=== PATIENT | male | born 1940 | race Caucasian/White ===

== ENCOUNTER 2020-11-03 17:05 | Emergency (ER) | payer OTHER ==
[~2020-11-03] VITALS: Ht 172.7 cm; Wt 108.9 kg
--- NOTE | ~2020-11-03 | EMS ---
[place] [address] EMS Patient Care Report Name: MANNIE MELCHOR Room #: REG FRANCIA Wayne#: [id number] Admission: 11/03/20 Attend Phys: Discharge: Date of : 40 Report #: [id number] THIS REPORT FOR: //name// Report Transmitted: 11/03/2020 19:30 EMS Care Summary [place], [place]/[facility] Incident [id number] @ 11/03/2020 16:16 Incident Location [address] [place] [address] Patient MANNIE MELCHOR Male, 80 Years 1940 Patient Address [address] [place] [address] Patient History Hypertension (HTN),Gastro-Esophageal Reflux Disease (GERD),Atrial Fibrillation,Type 2 Diabetes, Patient Allergies Penicillin allergy,Keflex,Lisinopril,Amoxicillin, Patient Medications Metformin, Chief Complaint Altered Mental Status Disposition Transported No Lights/[place] Reason Altered Mental Status Transported To [facility] Narrative Responded to the address for report of an unconscious patient. Arrived on scene at the single family residence and found the patient sitting on the couch alert but not oriented with a GCS of 14. The patients daughter was on scene and [address] [address] EMS Patient Care Report Name: MANNIE MELCHOR Room #: REG FRANCIA Wayne#: [id number] Admission: 11/03/20 Attend Phys: Discharge: Date of : 40 Report #: [id number] advised that the patient had a fall on Tuesday and that the patient had hit his head. The patients daughter advised that the patient went and saw his primary care physician after the fall and reported that the patient was scheduled for an MRI on this up coming Tuesday. The patient was assessed on scene and found to be hypoglycemic with a BG of 21. The patients daughter then advised that if the patients blood sugar was treated and that the patient became oriented that she would be okay with the patient not going to the hospital by EMS transport. The patient was then administered one 24g tube of instant glucose on the scene and the patient then began to drink complex carbohydrates on the scene. The patients blood sugar was then reassessed on scene and found to be only 28 on a BG reading. The patient began to become alert and oriented at this time and was able to answer questions appropriately. The patients daughter then advised that she did actually think it would be best for the patient to be transported to the hospital for further evaluation of his head. The patient then gave consent to transport and the patient was then assisted off of his couch and walked to the front door of the residence where he was then packaged onto the stretcher at the front porch. The patient was then moved to the back of the ambulance and placed and packaged for transport without incident. The patient was monitored throughout transport with no changes in mental status or condition. The patient was administered one more tube of instant glucose during transport with no further changes in condition. Patient care was then transfered to the receiving facility without incident. Med unit back in service. Initial Vitals @16:55P: 70, @16:47P: 59,CO: 0,NC Suspected: false @16:37P: 102,R: 18,BP: 118/87,Pain: 0/10,GCS: 15,Glucose: 28,SpO2: 96,Revised Trauma: 12, @16:22P: 54,R: 18,BP: 118/65,Pain: 0/10,GCS: 14,Glucose: 21,SpO2: 99,Revised Trauma: 12, @16:48P: 56,R: 18,BP: 139/64,Pain: 0/10,GCS: 15,Glucose: 71,SpO2: 99,Revised Trauma: 12, @16:51P: 58,R: 18,BP: 134/70,Pain: 0/10,GCS: 15,Revised Trauma: 12, Assessments @16:22MENTAL:Confused,Person Oriented,SKIN:HEENT:Head/Face: No Abnormalities,Neck/Airway: No Abnormalities,LUNG SOUNDS:ABDOMEN:PELVIS//GI:EXTREMITIES:PULSE:NEURO:@16:37MENTAL:Person Oriented,Time Oriented,Place Oriented,Event Oriented,SKIN:HEENT:Head/Face: No Abnormalities,Neck/Airway: No Abnormalities,LUNG SOUNDS:ABDOMEN:PELVIS//GI:EXTREMITIES:PULSE:NEURO: Impression Diabetic Hypoglycemia Procedures [address] [address] EMS Patient Care Report Name: CRISTINA MELCHORDONALD Denney Room #: REG FRANCIA Wayne#: [id number] Admission: 11/03/20 Attend Phys: Discharge: Date of : 40 Report #: [id number] @16:22ALS AssessmentResponse: UnchangedSucceeded@16:24Oral Glucose - 24 Grams (gms) - OralResponse: Improved@16:50Oral Glucose - 24 Grams (gms) - OralResponse: Unchanged@16:473-Lead ECGResponse: UnchangedSucceeded Timeline 16:15,Call Received 16:15,Dispatch Notified 16:16,Dispatched 16:17,En Route 16:20,On Scene 16:22,At Patient 16:22,ALS Assessment,Response: UnchangedSucceeded, 16:22,BP: 118/65 M,PULSE: 54,RR: 18 R,SPO2: 99 Ox,ETCO2: ,B,PAIN: 0,GCS: 14, 16:24,Oral Glucose - 24 Grams (gms) - Oral,Response: Improved 16:37,BP: 118/87 M,PULSE: 102,RR: 18 R,SPO2: 96 Ox,ETCO2: ,B,PAIN: 0,GCS: 15, 16:47,3-Lead ECG,Response: UnchangedSucceeded, 16:47,BP: / M,PULSE: 59,RR: R,SPO2: Ox,ETCO2: ,BG: ,PAIN: ,GCS: , 16:47,Depart Scene 16:48,BP: 139/64 M,PULSE: 56,RR: 18 R,SPO2: 99 Ox,ETCO2: ,B,PAIN: 0,GCS: 15, 16:50,Oral Glucose - 24 Grams (gms) - Oral,Response: Unchanged 16:51,BP: 134/70 M,PULSE: 58,RR: 18 R,SPO2: Ox,ETCO2: ,BG: ,PAIN: 0,GCS: 15, 16:55,BP: / M,PULSE: 70,RR: R,SPO2: Ox,ETCO2: ,BG: ,PAIN: ,GCS: , 17:11,At Destination 17:24,Call Closed Disclaimer v1.1 Copyright 2020 [employer] This EMS Care Summary contains data elements from the applicable legal record (which may be displayed differently). It is designed to provide pertinent information for the following purposes: continuity of care, clinical quality, and state data reporting. The complete legal record is available to ED staff and administrators of the receiving hospital in [facility]'s Patient Tracker. All data is provided "as is."
[~2020-11-03 17:05] MED LIST: ACIDOPHILUS LA1 EACH PO; ACIDOPHILUS LACT1 GM PO; ASPIRIN EC325 M1 PO; ASPIRIN325 PO; BAYER CHEWABLE81 MG PO; CHERACOL COUGH120 ML PO; CLOBETASOL PROP60 G3; GLUCOPHAGE1000 MG PO; IRON325 PO; LANTUS SUBQ; LEVAQUIN 500 M500 M2 PO; PRINIVIL5 MG PO; PROTONIX40 M1 PO; SORINE 80 MG TA80 M1 PO
[2020-11-03 20:19] VITALS: BP 121/74
== END 2020-11-03 20:45 | disposition home or self-care (01) ==
LOC: ER 17:05
DX: S00.81XA Abrasion of other part of head, initial encounter (principal); E11.649 Type 2 diabetes mellitus with hypoglycemia without coma; Z87.891 Personal history of nicotine dependence; Z88.1 Allergy status to other antibiotic agents; Z88.0 Allergy status to penicillin; Z79.82 Long term (current) use of aspirin; Z79.899 Other long term (current) drug therapy; Z79.4 Long term (current) use of insulin; Z86.718 Personal history of other venous thrombosis and embolism; W18.30XA Fall on same level, unspecified, initial encounter; Y93.89 Activity, other specified; Y92.89 Other specified places as the place of occurrence of the external cause; Y99.9 Unspecified external cause status